=== PATIENT | male | born 1990 | race Caucasian/White ===

== ENCOUNTER 2021-07-20 12:13 | Emergency (ER) | payer OTHER, SELFPAY ==
[2021-07-20 12:16] VITALS: BP 141/95; PULSE 70; RESP 14; TEMP 36.6; O2SAT 100
--- NOTE | 2021-07-20 13:29 | ED.EYEPROB ---
HPI - Eye Problem General Chief complaint: Eye Problems Stated complaint: infection in right eye Time Seen by Provider: 07/20/21 12:58 Source: patient Mode of arrival: ambulatory History of Present Illness HPI Narrative: 31-year-old male presents today with complaints of redness to the right thigh with discharge. Patient recently started using contacts and states when his contact came out he thinks it felt to be since yesterday. Patient has concerns for scratch of the cornea. Patient denies any pain, vision issues, sensitivity to light, or headache. Patient did note some thick discharge this morning. Related Data Allergies Allergy/AdvReac Type Severity Reaction Status Date / Time No Known Allergies Allergy Verified 07/20/21 13:31 Review of Systems Review of Systems: CONSTITUTIONAL: Denies fever, chills, or sweats. EYES: Denies visual changes, redness, or discharge. ENT: Right red with discharge. Denies rhinorrhea, congestion, sore throat, or otalgia. CARDIOVASCULAR: Denies chest pain, palpitations, or edema. RESPIRATORY: Denies cough or dyspnea. GASTROINTESTINAL: Denies abdominal pain, nausea, vomiting, or diarrhea. GENITOURINARY: Denies dysuria or hematuria. SKIN: Denies rash or itching. MUSCULOSKELETAL: Denies back pain, joint pain, or myalgia. NEUROLOGIC: Denies headache, numbness, dizziness, or weakness. PSYCHIATRIC: Denies anxiety or depression. Exam Narrative: GENERAL: Well-appearing, well-nourished, and in no acute distress. HEAD: Normocephalic, atraumatic. EYES: PERRLA and EOMI. ENT: Nares clear, no rhinorrhea or epistaxis. Mucous membranes moist. Oropharynx without tonsillar hypertrophy exudate or other lesions. Bilateral TMs pearly act nonbulging. scleral injection noted right eye. Patient eye numbed with tetracaine and fluorescein strip used. Mixon lamp evaluation noted no abrasions or ulcerations. NECK: Supple. No adenopathy or masses. No carotid bruits or JVD CHEST: Clear to auscultation. No respiratory distress. No wheezes rales or rhonchi HEART: Regular rate and rhythm. No murmur heard. Normal peripheral pulses. ABDOMEN: Soft, nontender, nondistended, normal active bowel sounds. EXTREMITIES: Normal range of motion. No edema. SKIN: Warm, dry, no rash. NEURO: No focal deficits. Alert and oriented x3. PSYCH: Normal mood and affect. Course Vital Signs Vital signs: Vital Signs Temperature 36.6 C 07/20/21 12:16 Pulse Rate 70 07/20/21 12:16 Respiratory Rate 14 07/20/21 12:16 Blood Pressure 141/95 H 07/20/21 12:16 Pulse Oximetry 100 07/20/21 12:16 Oxygen Delivery Room Air 07/20/21 12:16 Temperature 36.6 C 07/20/21 12:16 Pulse Rate 70 07/20/21 12:16 Respiratory Rate 14 07/20/21 12:16 Blood Pressure 141/95 H 07/20/21 12:16 Pulse Oximetry 100 07/20/21 12:16 Oxygen Delivery Room Air 07/20/21 12:16 MDM - Eye Problem MDM Narrative Medical decision making narrative: 31-year-old male HPI as noted. Mixon lamp evaluation showed no abrasions or ulcerations to the cornea. Patient recently started contact usage and had issues yesterday with possible breaking contacts. No foreign body noted into the eye. Will treat for conjunctivitis and use Cipro drops. Patient instructed not to use contacts until he follows up with ophthalmology which is in less than a week. Differential Diagnosis Differential diagnosis: Likely corneal abrasion, conjunctivitis and corneal ulcer Discharge Plan Discharge Clinical Impression: Bacterial conjunctivitis Patient Disposition: Home, Self-Care Condition: Stable Instructions: Antibiotic Form, Conjunctivitis (ED) Additional Instructions: use medications as prescribed. NO contacts until after seen by ophthalmology. See ophthalmology as scheduled in 1 week or follow up with them sooner if needed. Prescriptions: New ciprofloxacin HCl 0.3 % drops See Rx Instructions .ROUTE .COMPLEX Qty: 5 0RF Rx Instructions:
== END 2021-07-20 13:45 | disposition home or self-care (01) ==
PROVIDERS: Emergency Provider Nurse Practitioner Family; PCP Student in an Organized Health Care Education/Training Program
DX: H10.89 Other conjunctivitis (principal)
CPT/HCPCS: 99283